=== PATIENT | female | born 1990 | race Caucasian/White ===

== ENCOUNTER 2018-09-18 11:14 | Emergency (ER) | payer SELFPAY ==
--- NOTE | 2018-09-18 12:51 | CT ---
EXAM: Brain CTWithout contrast: HISTORY: Injury from trauma, dizziness, headache COMPARISON: None FINDINGS: No focal mass or midline shift. No intra or extra-axial hemorrhage. Sinuses and mastoids are clear of acute process. IMPRESSION: No mass or bleed or other significant acute intracranial process.
[2018-09-18] MEDS ORDERED: Ibuprofen 800 MG TAB ONE (13:34)
[2018-09-18] MEDS ORDERED: Meclizine HCl 25 MG TAB ONE (13:34)
[2018-09-18] MEDS ORDERED: Metoclopramide HCl 10 MG TAB ONE (13:38)
== END 2018-09-18 13:50 | disposition home or self-care (01) ==
LOC: ERS 11:14
DX: R42 Dizziness and giddiness (principal)
CPT/HCPCS: 70450; J8597